=== PATIENT | male | born 1985 | race Caucasian/White ===

== ENCOUNTER → 2018-04-12 | Outpatient (CLI) | payer OTHER ==
--- NOTE | 2018-04-12 10:09 | RAD ---
EXAM DESCRIPTION: Wrist,Right 3 Views CLINICAL HISTORY: PAIN IN RIGHT WRIST COMPARISON: None. TECHNIQUE: 3 views right FINDINGS: I see no bone joint or soft tissue abnormality. IMPRESSION: Normal right wrist. Electronically signed by: Peterson Carlin MD 04/12/2018 10:07 AM [facility]
--- NOTE | 2018-04-12 10:10 | RAD ---
EXAM DESCRIPTION: Shoulder,Right 2 or More Views CLINICAL HISTORY: 32 years Male, PAIN IN RIGHT SHOULDER COMPARISON: None available. FINDINGS: The visualized bones are well-mineralized.No acute fracture or dislocation. The soft tissues appear grossly unremarkable. IMPRESSION: Normal radiographs of the right shoulder. Electronically signed by: Winter Rob MD 04/12/2018 10:08 AM [facility]
== END ==
LOC: RAD 08:26
PROVIDERS: ATTEND Orthopaedic Surgery
DX: M25.511 Pain in right shoulder (principal); M25.531 Pain in right wrist

== ENCOUNTER → 2020-02-13 | Outpatient (CLI) | payer SELFPAY | LOC: LAB.O 10:50 | PROVIDERS: ATTEND Nurse Practitioner Family | DX: R21 Rash and other nonspecific skin eruption (principal) ==